=== PATIENT | female | born 1950 | race Asian ===

== ENCOUNTER 2020-07-28 08:36 | Day surgery (SDC) | payer BC, OTHER ==
[2020-07-26 14:02] LABS: ALBUMIN 3.8 g/dL (3.4-5.0); ANION GAP 6 mmol/L (5-15); CALCIUM 9.1 mg/dL (8.5-10.1); CHLORIDE 109 mmol/L (98-107)
[2020-07-26 14:05] LABS: ALANINE AMINOTRANSFERASE 28 U/L (12-78); ALKALINE PHOSPHATASE 78 U/L (45-117); BILIRUBIN,TOTAL 1.2 mg/dL (0.2-1.0); CREATININE 0.67 mg/dL (0.55-1.02); TOTAL PROTEIN 7.5 g/dL (6.4-8.2)
[~2020-07-28] VITALS: Ht 160 cm; Wt 80.7 kg
[~2020-07-28 08:36] MED LIST: ATOR40TA78 PO; BUPIVACAINE/PF 0.5% ONE; DAPA10TA PO; EPINEPHRINE 1 MG/ML, 1ML ONE; INSU300I SC; ISOSULFAN BLUE 10 MG/ML, 5ML IV ONE; METF1000 PO; METF500T17 PO; TELM40TA PO
[2020-07-28] MEDS ORDERED: CHLORHEXIDINE 15 ML UDC ONE (10:27)
[2020-07-28 10:28] VITALS: BP 138/83
[2020-07-28] MEDS ORDERED: FENTANYL PF 250 MCG/5ML ONE (10:58)
[2020-07-28] MEDS ORDERED: MIDAZOLAM 1 MG/ML, 2ML ONE (10:58)
[2020-07-28] MEDS ORDERED: PROMETHAZINE 25 MG/ML, 1ML IVPush PRN (11:00)
[2020-07-28] MEDS ORDERED: HYDROcodone/APAP 7.5-325MG/15ML UDC PO PRN (11:00)
[2020-07-28] MEDS ORDERED: MEPERIDINE/PF 25MG/0.5ML IVPush PRN (11:00)
[2020-07-28] MEDS ORDERED: DIPHENHYDRAMINE 50 MG/ML, 1ML IVPush PRN (11:00)
[2020-07-28] MEDS ORDERED: LABETALOL 5MG/ML, 20ML IV PRN (11:00)
[2020-07-28] MEDS ORDERED: hydrALAzine 20 MG/ML, 1ML IV PRN (11:00)
[2020-07-28] MEDS ORDERED: HALOPERIDOL 5 MG/ML IV PRN (11:00)
[2020-07-28] MEDS ORDERED: HYDROmorphone 1 MG/ML, 1ML INJ IVPush PRN (11:00)
[2020-07-28] MEDS ORDERED: CHLORHEXIDINE 15 ML UDC MM ONE (11:00)
[2020-07-28] MEDS ORDERED: LACTATED RINGERS 1,000 ML IV SCH (11:00)
[2020-07-28] MEDS ORDERED: DEXAMETHASONE 4 MG/ML, 1ML ONE (13:58)
[2020-07-28] MEDS ORDERED: GLYCOPYRROLATE 0.2MG/1ML, 5ML ONE (13:58)
[2020-07-28] MEDS ORDERED: ONDANSETRON 2MG/ML, 2ML ONE (13:58)
[2020-07-28] MEDS ORDERED: ROCURONIUM 10MG/ML,5ML ONE (13:58)
[2020-07-28] MEDS ORDERED: NEOSTIGMINE 1 MG/ML, 10ML ONE ×2 (13:58)
[2020-07-28] MEDS ORDERED: SUCCINYLCHOLINE 20 MG/ML, 10ML ONE (13:58)
[2020-07-28] MEDS ORDERED: PROPOFOL 10 MG/ML, 20ML ONE (13:58)
[2020-07-28] MEDS ORDERED: CEFAZOLIN 1,000 MG ONE (13:58)
[2020-07-28] MEDS ORDERED: FENTANYL PF 100 MCG/2ML ONE (14:49)
[2020-07-28] MEDS ORDERED: HYDROcodone/APAP 7.5-325MG/15ML UDC ONE (14:49)
[2020-07-28] MEDS ORDERED: PROMETHAZINE 25 MG/ML, 1ML ONE (14:52)
[2020-07-28] MEDS: FENTANYL PF 100 MCG/2ML IV PRN ×2 (15:01→15:06)
== END 2020-07-28 16:50 | disposition home or self-care (01) ==
LOC: CFH 08:36 → EDSTATUS 12:00 → OUT 16:50
PROVIDERS: ATTEND Surgery
DX: C50.411 Malignant neoplasm of upper-outer quadrant of right female breast (principal); D24.2 Benign neoplasm of left breast; N60.42 Mammary duct ectasia of left breast; E11.9 Type 2 diabetes mellitus without complications; E78.5 Hyperlipidemia, unspecified; I10 Essential (primary) hypertension; Z17.0 Estrogen receptor positive status [ER+]; Z20.828 Contact with and (suspected) exposure to other viral communicable diseases; Z79.899 Other long term (current) drug therapy; Z91.041 Radiographic dye allergy status
CPT/HCPCS: 19125; 19281; 19301; 36415; 38525; 38792; 76098; 80053; 82962; 88307; 88329; 88331; 88333; 88341; 88342; 88360; 93005; A9541; J0171; J0330; J0690; J1100; J2250; J2405; J2550; J2704; J3010; J7120; U0003; J2710

== ENCOUNTER → 2020-08-17 | Outpatient (CLI) | payer OTHER ==
[~2020-08-17] MED LIST changes: -BUPIVACAINE/PF 0.5% ONE; -EPINEPHRINE 1 MG/ML, 1ML ONE; -ISOSULFAN BLUE 10 MG/ML, 5ML IV ONE
== END | disposition home or self-care (01) ==
LOC: ROC 07:53
PROVIDERS: ATTEND Radiology Radiation Oncology
DX: C50.411 Malignant neoplasm of upper-outer quadrant of right female breast (principal); I10 Essential (primary) hypertension; E78.5 Hyperlipidemia, unspecified; E11.9 Type 2 diabetes mellitus without complications; Z17.0 Estrogen receptor positive status [ER+]; Z79.899 Other long term (current) drug therapy
CPT/HCPCS: 99214; G0463

== ENCOUNTER 2020-10-25 07:39 | Outpatient (CLI) | payer OTHER | END 2020-10-25 23:59 | disposition home or self-care (01) | LOC: ROC 07:39 | PROVIDERS: ATTEND Radiology Radiation Oncology | DX: Z08 Encounter for follow-up examination after completed treatment for malignant neoplasm (principal); Z85.3 Personal history of malignant neoplasm of breast; I10 Essential (primary) hypertension; E78.5 Hyperlipidemia, unspecified; E11.9 Type 2 diabetes mellitus without complications; I89.0 Lymphedema, not elsewhere classified; Z17.0 Estrogen receptor positive status [ER+]; Z79.899 Other long term (current) drug therapy | CPT/HCPCS: 99213; G0463 ==

== ENCOUNTER → 2021-02-08 | Outpatient (CLI) | payer OTHER | END | disposition home or self-care (01) | LOC: CFH 10:22 | PROVIDERS: ATTEND Radiology Radiation Oncology | DX: C50.411 Malignant neoplasm of upper-outer quadrant of right female breast (principal); E11.9 Type 2 diabetes mellitus without complications | CPT/HCPCS: 77062; 77066; G0279 ==

== ENCOUNTER → 2021-02-14 | Outpatient (CLI) | payer OTHER | END | disposition home or self-care (01) | LOC: CFH 09:31 | PROVIDERS: ATTEND Internal Medicine Hematology & Oncology | DX: C50.811 Malignant neoplasm of overlapping sites of right female breast (principal); M85.80 Other specified disorders of bone density and structure, unspecified site | CPT/HCPCS: 77080 ==

== ENCOUNTER 2021-04-27 07:12 | Outpatient (CLI) | payer OTHER | END 2021-04-27 23:59 | disposition home or self-care (01) | LOC: ROC 07:12 | PROVIDERS: ATTEND Radiology Radiation Oncology | DX: Z08 Encounter for follow-up examination after completed treatment for malignant neoplasm (principal); Z85.3 Personal history of malignant neoplasm of breast | CPT/HCPCS: 99213; G0463 ==